=== PATIENT | female | born 1945 | race Caucasian/White ===

== ENCOUNTER 2017-01-11 11:19 | Emergency (ER) | payer MEDICARE ==
[2017-01-11] MEDS ORDERED: IBUPROFEN 800 MG TABLET ONE (11:46)
[2017-01-11] MEDS ORDERED: OXYMETAZOLINE HCL 0.05% 30 SPRAYS/BOT NS ONE (11:47)
--- NOTE | 2017-01-11 12:58 | RAD ---
CHEST - 2 VIEWS COMPARISON: Chest 2 views, 07/08/2016 HISTORY: Cough and fever. FINDINGS: Views: Frontal and lateral chest Lungs: Normal Heart and vessels: Normal Trachea and bronchi: Normal Mediastinum and joycelyn: Normal Costophrenic sulci: Normal Chest wall and bones: No acute finding. Lower cervical spine fusion hardware. Left shoulder replacement. Upper abdomen: Surgical clips in the right upper quadrant. IMPRESSION: 1. No acute finding. There is no evidence of pneumonia. 2. Incidentally noted fusion hardware in the lower cervical spine and left shoulder replacement.
== END 2017-01-11 12:58 | disposition home or self-care (01) ==
LOC: ED 11:19
DX: J06.9 Acute upper respiratory infection, unspecified (principal); I10 Essential (primary) hypertension; Z87.891 Personal history of nicotine dependence
CPT/HCPCS: 71020; 87804; 99283 ×2; A9270 ×2